=== PATIENT | male | born 1990 | race African-American/Black ===

== ENCOUNTER 2016-09-30 22:57 | Emergency (ER) | payer MEDICAID ==
[~2016-09-30 22:57] MED LIST: HYDR-3511 PO; MULT-16; QUET25TA PO; TRAM300T24 PO
== END 2016-09-30 23:05 | disposition left against medical advice (07) ==
LOC: ER 22:57
DX: M79.673 Pain in unspecified foot (principal); Z53.21 Procedure and treatment not carried out due to patient leaving prior to being seen by health care provider